=== PATIENT | female | born 2000 | race Caucasian/White ===

== ENCOUNTER 2018-01-21 11:42 | Day surgery (SDC) | payer OTHER ==
[~2018-01-21 11:42] MED LIST: CLINDAMYCIN 900 MG/50 ML D5W IVPB IVPB; CLINDAMYCIN 900 MG/D5W (PMX) 50 ML IVPB; DEXAMETHASONE 4 MG/ML 1 ML INJ
[2018-01-21] MEDS ORDERED: PROPOFOL 20 ML (14:33)
[2018-01-21] MEDS ORDERED: SUCCINYLCHOLINE CHLORIDE 100 MG/5 ML SYG IV (14:33)
[2018-01-21] MEDS ORDERED: CEFAZOLIN 1 GM INJ (14:34)
[2018-01-21] MEDS ORDERED: DEXAMETHASONE 4 MG/ML 1 ML INJ (14:34)
[2018-01-21] MEDS ORDERED: LIDOCAINE 100 MG SYRINGE (14:34)
[2018-01-21] MEDS: BUPIVACAINE 0.5%/EPI (SDV) 30 ML INJ (14:46)
[2018-01-21] MEDS ORDERED: DIPHENHYDRAMINE 50 MG INJ IV (15:00)
[2018-01-21] MEDS ORDERED: METOCLOPRAMIDE 10 MG INJ IV (15:00)
[2018-01-21] MEDS ORDERED: HYDROmorphONE 1 MG/5 ML IV SYRINGE IV ×2 (15:00)
[2018-01-21] MEDS ORDERED: FENTAnyl 50 MCG/ML VIAL IV ×2 (15:00)
[2018-01-21] MEDS ORDERED: MEPERIDINE 25 MG INJ IV (15:00)
[2018-01-21] MEDS ORDERED: ONDANSETRON 4 MG INJ IV (15:00)
[2018-01-21] MEDS ORDERED: HYDROCODONE/APAP (5/325) TAB PO (15:30)
[2018-01-21] MEDS: HYDROmorphONE 1 MG/5 ML IV SYRINGE IV (15:47)
== END 2018-01-21 17:00 | disposition home or self-care (01) ==
LOC: SDS 11:42
DX: Q89.2 Congenital malformations of other endocrine glands (principal); E66.9 Obesity, unspecified; Z68.29 Body mass index [BMI] 29.0-29.9, adult
CPT/HCPCS: 60280; 88307; 88311